=== PATIENT | female | born 1945 | race Caucasian/White ===

== ENCOUNTER 2018-09-26 08:07 | Outpatient (CLI) | payer OTHER | END 2018-09-26 08:12 | disposition home or self-care (01) | LOC: SONOGRAMA 08:07 → EDBD 08:07 → SONOGRAMA 08:12 | DX: E04.1 Nontoxic single thyroid nodule (principal) ==

== ENCOUNTER 2019-04-17 08:48 | Outpatient (CLI) | payer OTHER | END 2019-04-17 08:51 | disposition home or self-care (01) | LOC: SONOGRAMA 08:48 | DX: E04.1 Nontoxic single thyroid nodule (principal) ==